=== PATIENT | female | born 1975 | race Two or more races ===

== ENCOUNTER 2022-07-17 06:14 | Emergency (ER) | payer MEDICAID ==
[~2022-07-17] VITALS: Ht 157.5 cm; Wt 64.2 kg
[~2022-07-17 06:14] MED LIST: ARIP15TA6 PO
[2022-07-17 06:40] VITALS: BP 132/84
== END 2022-07-17 07:52 | disposition left against medical advice (07) ==
LOC: ER 06:14
DX: R73.9 Hyperglycemia, unspecified (principal); Z53.21 Procedure and treatment not carried out due to patient leaving prior to being seen by health care provider